=== PATIENT | female | born 1970 | race Caucasian/White ===

== ENCOUNTER 2017-02-07 18:39 | Inpatient (IN) | payer BC ==
[2017-02-07] MEDS ORDERED: NS 0.9% 1000 ML* 1,000 ML IV ONE (18:56)
[2017-02-07] MEDS ORDERED: LORazepam INJ* 2 MG/ML 1 ML VIAL IV PUSH ONE (18:58)
[2017-02-07] MEDS ORDERED: Diltiazem IV* 5 MG/ML 5 ML VIAL (for loading dose/IV Push) (25 MG) IV SLOW PU ONE (19:07)
[2017-02-07 19:19] LABS: Hematocrit 48 % (35-47); Hemoglobin 15.8 g/dl (12.0-16.0); Mean Corpuscular HGB Conc 33 g/dl (31-36); Mean Corpuscular Hemoglobin 31 pg (27-31); Mean Corpuscular Volume 94 fL (80-97); Mean Platelet Volume 9 um3 (7.4-10.4); Red Blood Count 5.07 10^6/ul (4.0-5.4); Red Cell Distribution Width 14 % (10.5-15); White Blood Count 6.7 10^3/ul (3.5-10.8)
[2017-02-07 19:34] LABS: ALT 157 U/L (7-52); AST 215 U/L (13-39); Albumin 4.4 g/dL (3.2-5.2); Alkaline Phosphatase 122 U/L (34-104); Anion Gap 10 mmol/L (2-11); BUN/Creatinine Ratio 17.1 (8-20); Blood Urea Nitrogen 12 mg/dL (6-24); CO2 Carbon Dioxide 24 mmol/L (22-32); Calcium 9.8 mg/dL (8.6-10.3); Chloride 103 mmol/L (101-111); EGFR African American 116.4 (>60); EGFR Non-African American 90.5 (>60); Globulin 2.5 g/dL (2-4); Glucose 127 mg/dL (70-100); Magnesium 1.6 mg/dL (1.9-2.7); Potassium 3.4 mmol/L (3.5-5.0); Sodium 137 mmol/L (133-145); Total Protein 6.9 g/dL (6.4-8.9)
[2017-02-07] MEDS: Diltiazem DRIP* 100 MG/100 ML ADDV.BAG IVPB ONE (19:35)
[2017-02-07 19:38] LABS: Troponin I 0.01 ng/mL (<0.04)
--- NOTE | 2017-02-07 19:39 | RAD ---
INDICATION: Atrial fibrillation. Palpitations. COMPARISON: None TECHNIQUE: An AP portable view obtained at 1927 hours is submitted. FINDINGS: Bones/Soft Tissues: There are no acute bony findings. Cardiomediastinal: The cardiomediastinal silhouette is normal. There is no vascular congestion. Lungs: There are no infiltrates. Pleura: There are no pleural effusions. Other: None IMPRESSION: NO ACTIVE DISEASE.
[2017-02-07 19:57] LABS: Alcohol < 10 mg/dL (<10)
[2017-02-07 20:08] LABS: TSH (Thyroid Stimulating Horm) 11.91 mcIU/mL (0.34-5.60)
--- NOTE | 2017-02-07 20:15 | ED ---
Audra Marr Alok, scribed for Roman Ruvalcaba MD on 02/07/17 at 1911 . Palpitations / Dysrhythmia - HPI Summary HPI Summary: 46 y/o female presents to the ED for an irregular HR and tachycardia. Pt states she has had a hx of anxiety for the last few years and a hx of EtOH use. Pt denies any CP, SOB, nausea, edema, or hx of atrial fibrillation, though both her parents have A fib. Pt states NKDA. There is no other pertinent medical information at this time. - History of Current Complaint Chief Complaint: EDDysrhythmPalp Time Seen by Provider: 02/07/17 18:51 Hx Obtained From: Patient Onset/Duration: Gradual Onset, Lasting Hours, Still Present Timing: Constant Severity Initially: Moderate Severity Currently: Moderate Character: Fast, Irregular Aggravating: Nothing Alleviating: Nothing Associated Signs & Symptoms: Negative - Allergy/Home Medications Allergies/Adverse Reactions: Allergies Allergy/AdvReac Type Severity Reaction Status Date / Time SEASONAL Allergy Sneezing Uncoded 09/14/15 14:45 Home Medications: Home Medications ALPRAZolam TAB* [Xanax TAB*] 0.25 mg PO BID PRN 02/07/17 [History Confirmed 09/16] Cyclobenzaprine TAB* [Flexeril 10 MG TAB*] 5 - 10 mg PO TID PRN 02/07/17 [ History Confirmed 02/07/17] Multiple Vitamins W/ Minerals [Multivitamin Adults] 1 tab PO DAILY 02/07/17 [ History Confirmed 02/07/17] PMH/Surg Hx/FS Hx/Imm Hx Endocrine/Hematology History: Reports: Hx Thyroid Disease Denies: Hx Diabetes Cardiovascular History: Denies: Hx Hypertension, Hx Pacemaker/ICD Respiratory History: Denies: Hx Asthma, Hx Chronic Obstructive Pulmonary Disease (COPD) GI History: Denies: Hx Ulcer History: Denies: Hx Dialysis, Hx Renal Disease Sensory History: Denies: Hx Hearing Aid Psychiatric History: Reports: Hx Panic Disorder - INCREASING THIS WEEK - Cancer History Hx Chemotherapy: No Hx Radiation Therapy: No - Surgical History Surgery Procedure, Year, and Place: ORAL SURGERY ; Infectious Disease History: No Infectious Disease History: Denies: Hx Hepatitis, Hx Human Immunodeficiency Virus (HIV), Traveled Outside the [place] in Last 30 Days - Family History Known Family History: Positive: Other - Atrial Fibrillation (both parents) - Social History Alcohol Use: Occasionally Substance Use Type: Reports: None Type: Cigarettes Amount Used/How Often: 3-5 cig/day Have You Smoked in the Last Year: Yes Review of Systems Negative: Fever Positive: Palpitations. Negative: Chest Pain Negative: Shortness Of Breath Negative: Nausea Negative: Edema All Other Systems Reviewed And Are Negative: Yes Physical Exam Triage Information Reviewed: Yes Vital Signs On Initial Exam: Initial Vitals Temp Pulse Resp BP Pulse Ox 98.4 F 130 20 186/104 100 02/07/17 18:41 02/07/17 18:41 02/07/17 18:41 02/07/17 18:41 02/07/17 18:41 Vital Signs Reviewed: Yes Appearance: Positive: Well-Appearing, No Pain Distress Skin: Positive: Warm, Skin Color Reflects Adequate Perfusion, Dry Head/Face: Positive: Normal Head/Face Inspection Eyes: Positive: Normal ENT: Positive: Normal ENT inspection Neck: Positive: Supple, Nontender Respiratory/Lung Sounds: Positive: Clear to Auscultation, Breath Sounds Present Cardiovascular: Positive: Tachycardia - Irregular rhythm Abdomen Description: Positive: Nontender, Soft Bowel Sounds: Positive: Present Musculoskeletal: Positive: Normal Neurological: Positive: Normal Psychiatric: Positive: Normal, Affect/Mood Appropriate Diagnostics - Vital Signs Vital Signs Temp Pulse Resp BP Pulse Ox 02/07/17 18:41 98.4 F 130 20 186/104 100 - Laboratory Lab Results: Lab Results 02/07/17 02/07/17 02/07/17 Range/Units 19:10 19:10 19:10 WBC 6.7 (3.5-10.8) 10^3/ul RBC 5.07 (4.0-5.4) 10^6/ul Hgb 15.8 (12.0-16.0) g/dl Hct 48 H (35-47) % MCV 94 (80-97) fL MCH 31 (27-31) pg MCHC 33 (31-36) g/dl RDW 14 (10.5-15) % Plt Count 206 (150-450) 10^3/ul MPV 9 (7.4-10.4) um3 Neut % (Auto) 71.0 (38-83) % Lymph % (Auto) 15.8 L (25-47) % Barber % (Auto) 12.2 H (1-9) % Eos % (Auto) 0.6 (0-6) % Baso % (Auto) 0.4 (0-2) % Absolute Neuts (auto) 4.8 (1.5-7.7) 10^3/ul Absolute Lymphs (auto) 1.1 (1.0-4.8) 10^3/ul Absolute Monos (auto) 0.8 (0-0.8) 10^3/ul Absolute Eos (auto) 0 (0-0.6) 10^3/ul Absolute Basos (auto) 0 (0-0.2) 10^3/ul Absolute Nucleated RBC 0 10^3/ul Nucleated RBC % 0.1 INR (Anticoag Therapy) 0.86 L (0.89-1.11) APTT 26.3 (26.0-36.3) seconds D-Dimer, Quantitative < 200 (Less Than 230) ng/mL Sodium 137 (133-145) mmol/L Potassium 3.4 L (3.5-5.0) mmol/L Chloride 103 (101-111) mmol/L Carbon Dioxide 24 (22-32) mmol/L Anion Gap 10 (2-11) mmol/L BUN 12 (6-24) mg/dL Creatinine 0.70 (0.51-0.95) mg/dL Est GFR ( Amer) 116.4 (>60) Est GFR (Non-Af Amer) 90.5 (>60) BUN/Creatinine Ratio 17.1 (8-20) Glucose 127 H (70-100) mg/dL Calcium 9.8 (8.6-10.3) mg/dL Magnesium 1.6 L (1.9-2.7) mg/dL Total Bilirubin 1.60 H (0.2-1.0) mg/dL AST 215 H (13-39) U/L ALT 157 H (7-52) U/L Alkaline Phosphatase 122 H (34-104) U/L CK-MB (CK-2) 2.4 (0.6-6.3) ng/mL Troponin I 0.01 (<0.04) ng/mL Total Protein 6.9 (6.4-8.9) g/dL Albumin 4.4 (3.2-5.2) g/dL Globulin 2.5 (2-4) g/dL Albumin/Globulin Ratio 1.8 (1-3) TSH 11.91 H (0.34-5.60) mcIU/mL Beta HCG, Quant < 0.60 mIU/mL Serum Alcohol < 10 (<10) mg/dL Result Diagrams: 02/07/17 19:10 02/07/17 19:10 Lab Statement: Any lab studies that have been ordered have been reviewed, and results considered in the medical decision making process. - EKG 1844 Cardiac Rate: Tachycardia EKG Rhythm: Atrial Fibrillation - 170 bpm EKG Interpretation: Artial Fibrillation with rapid response Course/Dx - Course Course Of Treatment: Lisa Gandhi presented with a concern for anxiety and panic. Her symptoms of palpitations and irregular racing heart were new for her though. She was found to be in A-Fib with a rapid response and was slowed with cardizem. Her transaminases were elevated with AST greater than ALT and she admits to self-medication with alcohol for her anxiety. I am concerned for alcoholic hepatitis. - Diagnoses Provider Diagnoses: Atrial fibrillation with rapid ventricular response, Alcoholic hepatitis - Physician Notifications Discussed Care Of Patient With: Dr Martel (Hospitalist) @ 2003 - Agreed to admit pt - Critical Care Time Critical Care Time: 30-74 min Discharge - Discharge Plan Condition: Stable Disposition: ADMITTED TO [facility] Referrals: Gulshan Patel MD [Primary Care Provider] - The documentation as recorded by the Audra suarez Alok accurately reflects the service I personally performed and the decisions made by me, Roman Ruvalcaba MD.
[2017-02-07] MEDS ORDERED: Acetaminophen TAB* 325 MG PO PRN (20:42)
[2017-02-07] MEDS ORDERED: Folic Acid TAB* 1 MG PO ONE (20:43)
[2017-02-07] MEDS ORDERED: Thiamine TAB* 100 MG TAB PO ONE (20:43)
[2017-02-07] MEDS ORDERED: ALPRAZolam TAB* 0.25 MG PO PRN (20:44)
[2017-02-07] MEDS ORDERED: Cyclobenzaprine TAB* 10 MG PO PRN (20:44)
[2017-02-07] MEDS ORDERED: Potassium Chlor TAB* 20 MEQ TAB.ER PO ONE (20:48)
[2017-02-07] MEDS ORDERED: LORazepam TAB(*) 1 MG PO SCH (21:00)
[2017-02-08] MEDS: Heparin VIAL(*) 5000 UNITS/ML VIAL (FIVE THOUSAND) SUBCUT SCH ×2 (00:23→05:05)
[2017-02-08] MEDS: KCL 20 MEQ/100 ML IVPREMIX* 20 MEQ/100 ML BAG IV SCH ×4 (01:00→08:53)
[2017-02-08 01:56] LABS: Budding Yeast Present (Absent); Urine Bacteria Absent (Absent); Urine Bilirubin Negative (Negative); Urine Glucose Negative (Negative); Urine Nitrite Negative (Negative)
--- NOTE | 2017-02-08 02:32 | HP ---
HOSPITAL MEDICINE HISTORY AND PHYSICAL: DATE OF ADMISSION: 02/07/17 PRIMARY CARE PHYSICIAN: Dr. Patel. ATTENDING PHYSICIAN: Dr. Jorge L Martel *(dictation provided by Socorro Dennis NP). CHIEF COMPLAINT: Rapid irregular heart rate. HISTORY OF PRESENT ILLNESS: Ms. Gandhi is a 46-year-old female with past medical history of anxiety and depression as well as hypothyroidism, who presents today to the hospital with concern for palpitations and irregular heart rate. Ms. Gandhi states that she has had worsening anxiety since her sister over a year ago, this seemed to dramatically increase around January of last year; at that time, she returned to alcohol to help with her nerves. She reports drinking in the morning. She noted that today she had heart palpitations. She states that she has had some palpitations in the past, but these were different and that they were irregular and quite rapid. She felt unwell with this and decided to come to the emergency room for evaluation. She denies any other complaints. She has had no fevers, no chills, no unintended weight loss. She has been eating and drinking okay. She has been having diarrhea on a daily basis, but she attributed this to excessive alcoholic intake. In the emergency room, Ms. Gandhi was found to be in atrial fibrillation with rapid ventricular response as high as 200. She has been placed on a Cardizem drip with good rate control with heart rate down to 120. Her labs show hypokalemia with a potassium at 3.4 and a low magnesium at 1.6. She is also showing elevated LFTs and elevated TSH. I will note that the patient states she has not been taking her levothyroxine routinely. Finally, the patient states her last alcoholic beverage was this morning. PAST MEDICAL HISTORY: 1. Anxiety. 2. Depression. 3. Hypothyroidism. OUTPATIENT MEDICATIONS: 1. Flexeril p.r.n. 2. Alprazolam p.r.n. 3. Levothyroxine 100 mcg p.o. daily. 4. Multivitamin with mineral 1 tab p.o. daily. 5. Sertraline 100 mg p.o. daily. ALLERGIES: No drug allergies. FAMILY HISTORY: The patient reports that her mother and father are still alive , but they both have AFib. She has a sister who from metastatic colon cancer. SOCIAL HISTORY: The patient smokes 1 to 2 cigarettes per day. She drinks alcohol on a daily basis, starting in the a.m. She lives with her , who is her healthcare proxy. REVIEW OF SYSTEMS: A 14-point review of systems was completed with Ms. Gandhi and all those not mentioned above were negative. PHYSICAL EXAMINATION GENERAL: Ms. Gandhi is sitting in the bed. She is in no acute distress. She is calm and cooperative with my examination. VITAL SIGNS: Temperature 98.4, heart rate 122, respiratory rate 20, O2 saturation 99% on room air, blood pressure 139/101. HEART: S1, S2. No murmur, rub, or gallop and irregular. ABDOMEN: Soft, nontender. Bowel sounds positive x4. EXTREMITIES: No cyanosis or edema. SKIN: Intact. NEUROLOGIC: She is alert and oriented x3. She moves all extremities equally. There is no facial asymmetry or focal weakness. Extraocular movements are intact. DIAGNOSTIC STUDIES/LAB DATA: WBC 6.7, hemoglobin 15.8, hematocrit 48, platelet count 206. INR 0.86. D-dimer is less than 200. Sodium 137, potassium 3.4, chloride 103, serum bicarbonate 24, BUN 12, creatinine 0.70, glucose 127. Magnesium 1.6. Total bilirubin 1.6, AST 215, ALT 157, alk phos 122. Chest x-ray shows no acute process. EKG showed AFib with a heart rate of 170. ASSESSMENT: Ms. Gandhi is a 46-year-old female with past medical history of anxiety, depression and alcoholism, who presents today to hospital with rapid irregular heart rate and found to be in atrial fibrillation with rapid ventricular response. Our plans are for inpatient admission to the hospital with expected length of stay to be greater than 48 hours for the followin. Atrial fibrillation with rapid ventricular response. The patient has responded relatively well thus far to Cardizem. We will continue to titrate that up as needed to get her heart rate less than 100. We will then transition her over to Cardizem orally. She has CHADS-VASC 2 score of 0, and therefore, is not a candidate for anticoagulation. Her risk factors are most certainly her alcoholism and we will plan to replete her potassium and magnesium. I have counseled her about alcohol use and caffeine use. She will go for a transthoracic echocardiogram on Friday. 2. Anxiety and depression. I counseled Ms. Gandhi that she should obtain outpatient mental health services to help manage her anxiety, depression, and alcoholism and also suggested AA. 3. Hypothyroidism. The patient's TSH is elevated, but the patient states she has not been taking her levothyroxine. Plan to resume levothyroxine. 4. Alcoholic hepatitis with chronic alcoholism and concern for withdrawal. The patient's liver enzymes are elevated. I suspect this is secondary to excessive alcohol use. The patient will be abstinent while inpatient and we will recheck her labs in the morning. The patient will be on WAM protocol with multivitamin, folate, and thiamine supplementation as well as Ativan p.r.n. 5. DVT prophylaxis with heparin subcu. 6. Disposition to the medical floor. TIME SPENT: Approximately 60 minutes was spent on the admission of this patient , more than half time spent with her at the bedside reviewing the events leading up to this hospitalization, performing the physical examination, and reviewing the plan of care. SOCORRO DENNIS NP CC: Dr. Patel* [id number]/CPS #: [id number] LOVE
[2017-02-08] MEDS: Diltiazem DRIP* 100 MG/100 ML ADDV.BAG IVPB ONE (03:31)
[2017-02-08] MEDS ORDERED: Diltiazem DRIP* 100 MG/100 ML ADDV.BAG IVPB SCH ×3 (04:00→20:00)
[2017-02-08] MEDS: Levothyroxine TAB* 100 MCG TAB PO SCH (05:05)
[2017-02-08 05:46] LABS: Hematocrit 39 % (35-47); Mean Corpuscular HGB Conc 34 g/dl (31-36); Mean Corpuscular Hemoglobin 32 pg (27-31); Mean Corpuscular Volume 95 fL (80-97); Mean Platelet Volume 10 um3 (7.4-10.4); Red Blood Count 4.08 10^6/ul (4.0-5.4); Red Cell Distribution Width 14 % (10.5-15); White Blood Count 4.2 10^3/ul (3.5-10.8)
[2017-02-08 06:14] LABS: Albumin 3.4 g/dL (3.2-5.2); BUN/Creatinine Ratio 19.6 (8-20); Calcium 8.3 mg/dL (8.6-10.3); EGFR African American 167.7 (>60); EGFR Non-African American 130.4 (>60); Globulin 1.9 g/dL (2-4); Magnesium 2.4 mg/dL (1.9-2.7); Potassium 3.9 mmol/L (3.5-5.0); Total Bilirubin 1.9 mg/dL (0.2-1.0); Total Protein 5.3 g/dL (6.4-8.9)
[2017-02-08] MEDS: Folic Acid TAB* 1 MG PO SCH (08:53)
[2017-02-08] MEDS: Sertraline* 100 MG TAB PO SCH (08:53)
[2017-02-08] MEDS: Thiamine TAB* 100 MG TAB PO SCH (08:53)
[2017-02-08] MEDS: Multivitamins/Minerals TAB PO SCH (08:53)
[2017-02-08] MEDS: Enoxaparin(*) 80 MG/0.8 ML SYR SUBCUT SCH ×2 (11:45→20:53)
[2017-02-08] MEDS ORDERED: Metoprolol Tartrate IV* 1 MG/ML 5 ML VIAL IV ONE (14:16)
[2017-02-08] MEDS: Potassium Chloride LIQUID* 20 MEQ PACKET PO SCH ×2 (15:27→20:55)
[2017-02-08] MEDS: Metoprolol Succinate XL TAB* 25 MG PO SCH (15:27)
--- NOTE | 2017-02-08 18:01 | PN ---
Subjective Date of Service: 02/08/17 Interval History: HOSPITALIST PROGRESS NOTE Patient seen and examined at bedside. She feels a little better today, but still has palpitations, especially with exertion. Denies chest pain. Family History: Unchanged from Admission Social History: Unchanged from Admission Past Medical History: Unchanged from Admission Objective Active Medications: Acetaminophen (Tylenol Tab*) 650 mg PO Q4H PRN PRN Reason: PAIN Alprazolam (Xanax Tab*) 0.25 mg PO Q12H PRN PRN Reason: ANXIETY Cyclobenzaprine HCl (Flexeril Tab*) 5 mg PO TID PRN PRN Reason: SPASMS Last Admin: 02/07/17 21:37 Dose: 5 mg Enoxaparin Sodium (Lovenox(*)) 70 mg SUBCUT Q12H [facility] Last Admin: 02/08/17 11:45 Dose: 70 mg Folic Acid (Folvite Tab*) 1 mg PO DAILY [facility] Last Admin: 02/08/17 08:53 Dose: 1 mg Diltiazem HCl (Cardizem Iv Advan*) 100 mg in 100 mls @ 15 mls/hr IVPB .PER RATE TAYLOR PRN Reason: Protocol Last Admin: 02/08/17 13:15 Dose: 15 mls/hr Levothyroxine Sodium (Synthroid Tab*) 100 mcg PO DAILY@0600 [facility] Last Admin: 02/08/17 05:05 Dose: 100 mcg Lorazepam (Ativan Tab(*)) 0 mg PO .PER WAM SCORE [facility] PRN Reason: Protocol Last Admin: 02/08/17 03:33 Dose: 1 mg Metoprolol Succinate (Toprol Xl Tab*) 25 mg PO DAILY [facility] Last Admin: 02/08/17 15:27 Dose: 25 mg Multivitamins/Minerals (Theragran/Minerals Tab*) 1 tab PO DAILY [facility] Last Admin: 02/08/17 08:53 Dose: 1 tab Potassium Chloride (Klor-Con Liquid*) 40 meq PO Q4H [facility] Stop: 02/08/17 20:01 Last Admin: 02/08/17 15:27 Dose: 40 meq Sertraline HCl (Zoloft*) 100 mg PO DAILY [facility] Last Admin: 02/08/17 08:53 Dose: 100 mg Thiamine HCl (Vitamin B-1 Tab*) 100 mg PO DAILY [facility] Last Admin: 02/08/17 08:53 Dose: 100 mg Vital Signs 02/08/17 02/08/17 02/08/17 11:19 11:31 11:35 Temperature 98.6 F Pulse Rate 80 Respiratory 22 19 Rate Blood Pressure 107/71 111/73 (mmHg) O2 Sat by Pulse 98 Oximetry 02/08/17 02/08/17 02/08/17 11:40 11:45 12:00 Temperature Pulse Rate Respiratory 20 25 25 Rate Blood Pressure 99/68 102/83 89/49 (mmHg) O2 Sat by Pulse Oximetry Oxygen Devices in Use Now: None Appearance: Pleasant lady sitting up in bed in NAD. Eyes: No Scleral Icterus Ears/Nose/Mouth/Throat: Mucous Membranes Moist Neck: Trachea Midline Respiratory: Symmetrical Chest Expansion and Respiratory Effort, Clear to Auscultation Cardiovascular: - - Normal S1 and S2, irregularly irregular Abdominal: NL Sounds; No Tenderness; No Distention Extremities: No Edema Neurological: Alert and Oriented x 3, NL Muscle Strength and Tone Lines/Tubes/Other Access: Clean, Dry and Intact Peripheral IV Nutrition: Taking PO's Result Diagrams: 02/08/17 04:49 02/08/17 04:49 Assess/Plan/Problems-Billing Assessment: Mrs. Gandhi is a 46yo F with PMH of anxiety, depression, hypothyroidism, alcohol abuse, who presented to ED with c/o palpitations, found to be in Afib with RVR. - Patient Problems (1) Atrial fibrillation with RVR Comment: - Increase Cardizem to 15mg/h and add Metoprolol. - Cardiology consult requested - may need AYANNA CV. - Continue Lovenox. - Hypokalemia and Hypomagnesemia corrected. (2) Alcohol withdrawal Comment: - Continue WAM protocol. (3) Anxiety Comment: - Continue Alprazolam PRN. (4) Alcoholic hepatitis Comment: - Continue to monitor LFTs. (5) Hypothyroidism Comment: - TSH is 11. - Continue Levothyroxine. - Check Free T4 and T3. (6) DVT prophylaxis Comment: - Lovenox. (7) Full code status Status and Disposition: Inpatient.
--- NOTE | 2017-02-09 01:05 | CONS ---
CC: Dr. Mendoza; Dr. Patel; Caleb Can MD CARDIOLOGY CONSULTATION: DATE OF CONSULT: 02/08/17 CONSULTING PROVIDER: Codi Mendoza MD PRIMARY DOCTOR: Gulshan Patel MD REASON FOR EVALUATION: Atrial fibrillation. HISTORY OF PRESENT ILLNESS: This is a very pleasant 46-year-old woman who was admitted with palpitations and was diagnosed atrial fibrillation with rapid ventricular response. She said that she has a history of "panic attacks" over the last year, but also has been drinking fairly heavily over the last year to try to treat her anxiety and panic attacks. She said that she has been having between 5 and 8 shots of liquor a day. She has had no blackouts or seizures, but occasionally her will come over and find her passed out. She says that about once a week, she will have an episode of feeling her heart rate speed up when she is anxious. It will increase readily, lasts for about 30 minutes and then resolve gradually. She says it can be associated with lightheadedness, apprehension, and weakness. Yesterday, she had a spell in the morning after being nauseous and vomiting. She felt her heart going fast and noted it was a panic attack, but it persisted over the course of the day. She also felt lightheaded, apprehensive, and weak with it, but is able to get around her house. It started about 7 a.m. according to the patient. Later in the day, she called up her primary care doctor's office and informed them of the developments. She was advised to go to the emergency room, where she was found to be in atrial fibrillation with rapid ventricular response. Her heart rate was as high as 200. She was started on Cardizem drip with good control of her heart rates, down to the 120s. She also was noted to have hypokalemia at 3.4 and hypomagnesemia at 1.6. She also had some mildly elevated LFTs and an elevated TSH. She admits that she had been noncompliant with her Synthroid over the last several months. She denies syncope. No orthopnea. No chest pain. No peripheral edema. No strokes or mini strokes. No bleeding problems. She does not exercise regularly, but does take care of several animals and says she is able to get around the house and take care of her animals without problem. PMH: anxiety, palpitations, hypothyroidism, alcohol abuse. PAST SURGICAL HISTORY: She denies any past surgical history. MEDICATIONS: Her outpatient medications include: 1. Flexeril. 2. Alprazolam p.r.n. She has been trying to avoid using benzodiazepines because of her concerns about becoming habituated to the drugs. 3. Levothyroxine 100 mcg a day here and in the past, but she was not compliant recently. 4. Multivitamin. 5. Sertraline 100 mg a day. As an inpatient, she is on: 1. IV diltiazem. 2. Acetaminophen. 3. Alprazolam p.r.n. 0.25 mg q.12 hours standing. 4. Enoxaparin 70 mg subcu q.12 hours. 5. Folic acid 1 mg a day. 6. Levothyroxine 100 mcg a day. 7. She received IV magnesium. 8. She received potassium. 9. She is receiving thiamine 100 mg a day. ALLERGIES: She denies any medication allergies. FAMILY HISTORY: She had a sister who of colon cancer in 2014 and a brother who committed suicide in 1994. She has no other siblings. Her mother is alive at 82. Father is alive at 88. Both have AFib and diabetes. SOCIAL HISTORY: She is , but has no children. 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 She also smokes 1 to 2 cigarettes a day. REVIEW OF SYSTEMS: Review of systems x10 was negative except as above. PHYSICAL EXAM: General: She is a well-developed, well-nourished female, mildly overweight, in no apparent distress. Vital signs: Blood pressure 108/74 , heart rate 99 to 120 and irregular, weight 148 pounds. HEENT: Atraumatic, normocephalic. Extraocular muscles intact. Sclerae anicteric. Neck: No significant JVD. Carotids 2+ without bruits. No cervical adenopathy or thyromegaly. Skin: Turgor normal. Cardiac Exam: S1, S2. Irregular, rapid. No murmurs. Chest: Clear. No CVAT. Abdomen: No hepatosplenomegaly. Bowel sounds present. Nontender. Extremities: Femoral pulses intact without bruits. Distal pulses intact. No edema. Neurologic: Motor strength 5/5 bilaterally. Deep tendon reflexes 2/4. Alert and oriented x3. DIAGNOSTIC STUDIES/LAB DATA: X-ray revealed no active disease. EKG from yesterday revealed atrial fibrillation with a rapid ventricular response of 170s and poor R- wave progression, diffuse ST depressions. Labs include relatively normal CBC. Sodium 135, potassium at 3.9, bicarb of 21 , BUN of 10, creatinine of 0.51, and calcium of 8.3. Total bili elevated at 1.9. AST elevated at 227, ALT elevated at 134 and alk phos 90, down from 122 on admission. Troponins 0.01, 0.02, and 0.01. TSH elevated at 11.9. D-dimer less than 200. INR 0.86. Serum alcohol less than 10 from last night. IMPRESSION: Ms. Gandhi has atrial fibrillation with an elevated ventricular response at 100 to 120 range even on diltiazem and history of alcohol abuse. She also has electrolyte abnormalities, which are being corrected. I did discuss at length with the patient the diagnosis of atrial fibrillation and the implications including the risk for tachycardia-induced cardiomyopathy, symptomatic atrial fibrillation with rapid rhythms as well as cardioembolic events. Given that it is uncertain exactly how long she has had the atrial fibrillation and whether she has LV dysfunction due to her alcohol, I did suggest the followin. I would continue with anticoagulation as you are doing. 2. I would correct her electrolyte abnormalities including magnesium, potassium , and calcium levels. 3. I agree with replacing her thiamine and magnesium. 4. I would correct her thyroid dysfunction as you are doing. 5. I explained to her the potential toxic effects of alcohol on the heart and possible contribution to her arrhythmia and other morbidity and mortality and advised her to get counseling and treatment for alcohol abuse. 6. I would consider adding a beta talya to her regimen for rate control and it maybe helpful in terms of her panic attacks and anxiety issues. 7. I would continue with treatment of her anxiety as you are doing and consider counseling. 8. I would obtain an echocardiogram to assess for the structural heart disease. 9. If she remains in atrial fibrillation despite the beta-talya and rate control and electrolyte replacement, we will consider a AYANNA-guided cardioversion on Friday. [id number]/[facility] #: [id number] LOVE
[2017-02-09] MEDS: Levothyroxine TAB* 100 MCG TAB PO SCH (05:44)
[2017-02-09 07:08] LABS: Albumin 3.4 g/dL (3.2-5.2); BUN/Creatinine Ratio 13.7 (8-20); Calcium 8.5 mg/dL (8.6-10.3); EGFR African American 167.7 (>60); EGFR Non-African American 130.4 (>60); Globulin 1.9 g/dL (2-4); Total Bilirubin 2.6 mg/dL (0.2-1.0); Total Protein 5.3 g/dL (6.4-8.9)
[2017-02-09 07:21] LABS: Free T4 1.07 ng/dL (0.61-1.12)
[2017-02-09] MEDS: Thiamine TAB* 100 MG TAB PO SCH (08:16)
[2017-02-09] MEDS: Sertraline* 100 MG TAB PO SCH (08:17)
[2017-02-09] MEDS: Folic Acid TAB* 1 MG PO SCH (08:17)
[2017-02-09] MEDS: Multivitamins/Minerals TAB PO SCH (08:17)
[2017-02-09] MEDS: Enoxaparin(*) 80 MG/0.8 ML SYR SUBCUT SCH ×2 (08:18→20:55)
[2017-02-09] MEDS: Metoprolol Succinate XL TAB* 25 MG PO SCH (08:20)
[2017-02-09 11:06] LABS: Total T3 0.97 ng/mL (0.87-1.78)
[2017-02-09] MEDS ORDERED: Potassium Chloride LIQUID* 20 MEQ PACKET PO ONE (12:30)
[2017-02-09] MEDS ORDERED: Metoprolol Succinate XL TAB* 25 MG PO ONE (13:00)
--- NOTE | 2017-02-09 16:32 | PN ---
Subjective Date of Service: 02/09/17 Interval History: HOSPITALIST PROGRESS NOTE Patient seen and examined at bedside. She feels better today. Palpitations are resolved, denies chest pain. Family History: Unchanged from Admission Social History: Unchanged from Admission Past Medical History: Unchanged from Admission Objective Active Medications: Acetaminophen (Tylenol Tab*) 650 mg PO Q4H PRN PRN Reason: PAIN Alprazolam (Xanax Tab*) 0.25 mg PO Q12H PRN PRN Reason: ANXIETY Cyclobenzaprine HCl (Flexeril Tab*) 5 mg PO TID PRN PRN Reason: SPASMS Last Admin: 02/07/17 21:37 Dose: 5 mg Enoxaparin Sodium (Lovenox(*)) 70 mg SUBCUT Q12H [facility] Last Admin: 02/09/17 08:18 Dose: 70 mg Folic Acid (Folvite Tab*) 1 mg PO DAILY [facility] Last Admin: 02/09/17 08:17 Dose: 1 mg Levothyroxine Sodium (Synthroid Tab*) 100 mcg PO DAILY@0600 [facility] Last Admin: 02/09/17 05:44 Dose: 100 mcg Lorazepam (Ativan Tab(*)) 0 mg PO .PER WAM SCORE [facility] PRN Reason: Protocol Last Admin: 02/08/17 03:33 Dose: 1 mg Metoprolol Succinate (Toprol Xl Tab*) 25 mg PO DAILY [facility] Last Admin: 02/09/17 08:20 Dose: 25 mg Multivitamins/Minerals (Theragran/Minerals Tab*) 1 tab PO DAILY [facility] Last Admin: 02/09/17 08:17 Dose: 1 tab Sertraline HCl (Zoloft*) 100 mg PO DAILY [facility] Last Admin: 02/09/17 08:17 Dose: 100 mg Thiamine HCl (Vitamin B-1 Tab*) 100 mg PO DAILY [facility] Last Admin: 02/09/17 08:16 Dose: 100 mg Vital Signs 02/09/17 02/09/17 02/09/17 11:01 12:00 13:12 Temperature 98.7 F Pulse Rate 118 Respiratory 24 18 Rate Blood Pressure 126/82 128/81 (mmHg) O2 Sat by Pulse 100 Oximetry Oxygen Devices in Use Now: None Appearance: Pleasant lady sitting up in bed in NAD. Eyes: No Scleral Icterus Ears/Nose/Mouth/Throat: Mucous Membranes Moist Neck: Trachea Midline Respiratory: Symmetrical Chest Expansion and Respiratory Effort, Clear to Auscultation Cardiovascular: - - Normal S1 and S2, irregularly irregular Extremities: No Edema Neurological: Alert and Oriented x 3, NL Muscle Strength and Tone Lines/Tubes/Other Access: Clean, Dry and Intact Peripheral IV Nutrition: Taking PO's Result Diagrams: 02/08/17 04:49 02/09/17 05:55 Assess/Plan/Problems-Billing Assessment: Mrs. Gandhi is a 46yo F with PMH of anxiety, depression, hypothyroidism, alcohol abuse, who presented to ED with c/o palpitations, found to be in Afib with RVR. - Patient Problems (1) Atrial fibrillation with RVR Comment: - Better controlled. - D/c Cardizem drip and continue Metoprolol. - Cardiology consult appreciated - plan for AYANNA CV in AM. - Continue Lovenox. - Hypokalemia and Hypomagnesemia corrected. (2) Alcohol withdrawal Comment: - Continue WAM protocol, but not scoring high. - SW eval about resources in the community. (3) Anxiety Comment: - Continue Alprazolam PRN. (4) Alcoholic hepatitis Comment: - Continue to monitor LFTs. (5) Hypothyroidism Comment: - TSH is 11, Free T4 and T3 are normal. - Continue Levothyroxine and repeat TFTs in 4 weeks. (6) DVT prophylaxis Comment: - Lovenox. (7) Full code status Status and Disposition: Inpatient.
[2017-02-09] MEDS ORDERED: Diltiazem CD CAP* 120 MG PO ONE (17:44)
[2017-02-10] MEDS ORDERED: Diltiazem IV* 5 MG/ML 5 ML VIAL (for loading dose/IV Push) (25 MG) IV SLOW PU STA (05:15)
[2017-02-10] MEDS: Levothyroxine TAB* 100 MCG TAB PO SCH (05:47)
[2017-02-10] MEDS ORDERED: Midazolam* 1 MG/ML 5 ML VIAL (5 MG) ONE ×2 (09:13→10:53)
[2017-02-10] MEDS ORDERED: fentaNYL* 50 MCG/ML 2 ML VIAL (100 MCG VIAL) ONE ×2 (09:13→10:53)
[2017-02-10] MEDS ORDERED: Flumazenil* 0.1 MG/ML 5 ML MDV ONE (09:14)
[2017-02-10] MEDS ORDERED: Naloxone* 0.4 MG/ML 1 ML VIAL ONE (09:14)
[2017-02-10] MEDS ORDERED: Lidocaine 2% VISCOUS* 15 ML UDC ONE (09:50)
[2017-02-10 12:43] VITALS: BP 126/81
[2017-02-10] MEDS: Folic Acid TAB* 1 MG PO SCH (13:25)
[2017-02-10] MEDS: Multivitamins/Minerals TAB PO SCH (13:25)
[2017-02-10] MEDS: Thiamine TAB* 100 MG TAB PO SCH (13:26)
[2017-02-10] MEDS: Metoprolol Succinate XL TAB* 25 MG PO SCH ×2 (13:27→15:21)
[2017-02-10] MEDS: Enoxaparin(*) 80 MG/0.8 ML SYR SUBCUT SCH (13:28)
[2017-02-10] MEDS: Sertraline* 100 MG TAB PO SCH (13:32)
[2017-02-10 14:06] LABS: Albumin 3.7 g/dL (3.2-5.2); BUN/Creatinine Ratio 10.2 (8-20); Calcium 8.8 mg/dL (8.6-10.3); EGFR African American 141.8 (>60); EGFR Non-African American 110.2 (>60); Globulin 2.4 g/dL (2-4); Potassium 4.1 mmol/L (3.5-5.0); Total Bilirubin 1.9 mg/dL (0.2-1.0); Total Protein 6.1 g/dL (6.4-8.9)
--- NOTE | 2017-02-10 14:56 | ECHO ---
Patient: BRANDT NGUYEN [facility] Rec#: [id number] : 1970 Date: 02/10/2017 Age: 46y Height: 157.5 cm / 62.0 in Weight: 67.1 kg / 147.9 lbs Sex: F BSA: 1.7 Room#: 452 Admit Date#: 02/07/2017 Type: Inpatient Referring: Caleb Can MD Performing: Madan Trinidad MD Reading: Madan Trinidad MD Control Operator: Anna Dodson RN RDCS Nurse: Eloise Arellano RN CC: Gulshan Patel MD Transesophageal Echocardiogram Indication: Atrial fibrillation BP: 110/81 HR: 156 Rhythm: A-Fib Findings History: Anxiety, palpitations, hypothyroidism, ETOH abuse, smoker Technical Comments: The study quality is good. Completed at 1225. Left Ventricle: The left ventricular chamber size is normal. Global left ventricular wall motion and contractility are within normal limits. There is normal left ventricular systolic function. The estimated ejection fraction is 55-60%. The assessment of diastolic function is non-diagnostic. Left Atrium: The left atrium is mild to moderately dilated. No thrombus is visualized within the left atrium. There is no thrombus visualized in the left atrial appendage. Right Ventricle: The right ventricular chamber size and systolic function are within normal limits. Right Atrium: The right atrial cavity size is normal. Interatrial septum appears intact without evidence of shunting. There is no patent foramen ovale visualized. The bubble study is negative. Aortic Valve: The aortic valve is trileaflet. The aortic valve leaflets are mildly thickened. There is a trace of aortic regurgitation. There is no evidence of aortic stenosis. Mitral Valve: The mitral valve leaflets are mildly thickened. There is mild to moderate mitral regurgitation. There is no evidence of mitral stenosis. Tricuspid Valve: The tricuspid valve leaflets are normal. There is mild tricuspid regurgitation. Pulmonic Valve: The pulmonic valve appears normal. There is a trace pulmonic regurgitation. There is no pulmonic stenosis. Pericardium: There is no significant pericardial effusion. Aorta: There is no dilatation of the ascending aorta. The aortic root is normal in size. There is minimal atherosclerotic plaque seen in the aorta. Pulmonary Artery: The main pulmonary artery appears normal. Venous: The bicaval view was obtained and appears normal. The pulmonary veins appear normal. The LUPV is well-visualized and interrogated with Doppler. AYANNA Procedures: All standard views were attempted within the limitations of patient tolerance and safety. History and physical as well as labs were reviewed. The patient was in a fasting state. Risks and benefits of the procedure, including alternatives, were discussed and written informed consent was obtained. The patient and/or their health care in store marketing representative expressed understanding of the procedure, risks and benefits. Baseline and continuous monitoring of blood pressure, heart rate, pulse oximetry and heart rhythm was performed throughout the procedure. The appropriate time-out procedure was performed as per [facility] protocol. The patient was placed in the left lateral decubitus position. The patient's posterior pharynx was anesthetized with 20ml of 2% viscous lidocaine. The patient received IV Midazolam with a total dose of 8 mg. The patient received IV Fentanyl with a total dose of 75 mcg. An oral bite block was inserted for protection of oral dentition. The multiplane transesophageal echocardiogram probe was inserted through the posterior oropharynx and advanced into the esophagus without difficulty. Multiple 2D images were obtained of the heart and its related structures. Color flow Doppler was used for evaluation. Spectral Doppler was also used. The atrial septum was interrogated with color flow Doppler. At the conclusion of the procedure the probe was removed with continuous suction without complications. The patient tolerated the procedure with no apparent complications. Contrast: Normal saline was used as contrast for the bubble study. Image 37. Conclusions Global left ventricular wall motion and contractility are within normal limits. The estimated ejection fraction is 55-60%. No thrombus is visualized within the left atrium. The left atrium is mild to moderately dilated. There is no thrombus visualized in the left atrial appendage. The right ventricular chamber size and systolic function are within normal limits. Interatrial septum appears intact without evidence of shunting. There is no patent foramen ovale visualized. The aortic valve leaflets are mildly thickened. There is a trace of aortic regurgitation. There is mild to moderate mitral regurgitation. There is mild tricuspid regurgitation. There is no significant pericardial effusion. Measurements Name Value Normal Range Aortic Annulus 1.7 cm (1.4 - 2.6) Ao root diameter (2D) 2.8 cm (2.1 - 3.5) Ascending Ao 3.4 cm (2.1 - 3.4) Name Value Normal Range MV E-wave Vmax 0.79 m/sec - MV deceleration time 95 msec - Name Value Normal Range AV Vmax 1.3 m/sec -
--- NOTE | 2017-02-10 23:43 | CARD ---
CARDIOVERSION REPORT: DATE OF PROCEDURE: 02/10/17 - ROOM #452 PROCEDURE: Cardioversion. INDICATION: Atrial fibrillation. HISTORY OF PRESENT ILLNESS: The patient is a 46-year-old female who was admitted to the hospital with palpitations. She was found to be in atrial fibrillation with rapid ventricular response. The patient had just undergone transesophageal echocardiogram, which demonstrated normal LV size and systolic function. No significant valvular abnormalities. No evidence of thrombus in the left atrial appendage. Cardioversion was recommended. DESCRIPTION OF PROCEDURE: The patient was given an additional 2 mg of Versed and 25 mcg of fentanyl for an additional conscious sedation for cardioversion. The patient was cardioverted with a 150 joules of synchronized biphasic energy. The patient converted to normal sinus rhythm. The patient tolerated the procedure well with no complications. The patient will be discharged on Xarelto 20 mg a day. She will be discharged on Toprol 25 mg once a day. The patient will follow up with Dr. Can. CC: Caleb Can MD* [id number]/[facility] #: [id number] MTDD
--- NOTE | 2017-02-11 10:44 | DS ---
DISCHARGE SUMMARY: DATE OF ADMISSION: 02/07/17 DATE OF DISCHARGE: 02/10/17 PRIMARY CARE PROVIDER: Gulshan Patel MD. CONSULTING CARDIOLOGISTS: Caleb Can MD; and Madan Trinidad MD. DISCHARGE DIAGNOSES: 1. Atrial fibrillation with rapid ventricular rate, status post cardioversion. 2. Mild alcohol withdrawal. 3. Alcoholic hepatitis. SECONDARY DIAGNOSES: 1. Anxiety. 2. Depression. 3. Hypothyroidism. 4. Alcohol abuse. MEDICATION LIST: 1. Multivitamin one tablet p.o. daily. 2. Alprazolam 0.25 mg p.o. b.i.d. as needed for anxiety. 3. Cyclobenzaprine 5 to 10 mg p.o. t.i.d. as needed for spasms. 4. Sertraline 100 mg p.o. daily. 5. Levothyroxine 100 mcg p.o. daily. New Medications: 1. Thiamine 100 mg p.o. daily. 2. Rivaroxaban 20 mg p.o. daily. 3. Metoprolol succinate 25 mg p.o. daily. 4. Folic acid 1 mg p.o. daily. HOSPITAL COURSE: Mrs. Gandhi is a 46-year-old lady with a past medical history as stated above, that presented to the emergency room with complaints of palpitations and irregular heart rate. The patient states that she has had anxiety for a long time, but this has worsened over the past year since her sister passed. The patient started to drink to help with her nerves and this has progressed to the point that she was drinking 12 drinks (hard liquor, wine) daily. She was trying to cut down and was down to 8 drinks a day, but she developed palpitations associated with shortness of breath, and she came to the emergency room for further evaluation. For more details about her presentation , I refer you to her history and physical. In the emergency room, she was found to be in atrial fibrillation with a rapid ventricular response as high as 200. She was started on a Cardizem drip and she was also found to have mild hypokalemia and mild hypomagnesemia. She was admitted to the telemetry floor for further evaluation. The patient was started on anticoagulation and just the Cardizem drip was not enough for rate control, so metoprolol was added. The patient was seen in consultation by Cardiology (Dr. Can) and he recommended to continue anticoagulation with Lovenox, replete electrolytes, and to continue rate control, but if no changes, the plan was for AYANNA-guided cardioversion. A transthoracic echocardiogram was performed and it showed the ejection fraction of 55% to 60%. The patient had AYANNA-guided cardioversion on 02/10/17 and Cardiology's (Dr. Trinidad ) recommendation was to discharge home on metoprolol and anticoagulation with Xarelto. I discussed with the patient the indication for anticoagulation and the risks and benefits, including but not limited to risk of bleeding and she is in agreement with this plan of care. The patient had mild withdrawal while in the hospital and did not require multiple doses of Ativan. Her LFTs were elevated and are now trending down. Hepatitis serologies are pending at the time of this dictation and should be followed as outpatient. She was advised about the importance of quitting alcohol ingestion and she states that she will follow up with a counselor to help her deal with her anxiety. The patient's TSH was elevated at 11.9, but she had a normal free T4 at 1.07 and a normal total T3 at 0.97. I have continued her same dose of levothyroxine , but she should have TFTs repeated in 4 weeks to adjust her medication if needed. The patient is medically stable for discharge at this time, to follow up with Dr. Patel next week and with Dr. Can in 1 month. PHYSICAL EXAMINATION: Vital Signs: Temperature 97.8, heart rate is 77, respiratory rate is 16, oxygen saturation is 100% on room air, blood pressure is 126/81. General: The patient is a pleasant lady, sitting up in bed, in no acute distress. CVS: Normal S1, S2. Regular rate and rhythm. Chest: Breath sounds present bilaterally with no added sounds. Abdomen: Soft. Extremities: No edema. Neuro: She is alert and oriented x3. Able to move all 4 extremities. DIET: Regular diet, but the patient was advised to avoid caffeine. ACTIVITY: As tolerated. DISPOSITION: To home. STATUS WHILE IN THE HOSPITAL: Inpatient. Please keep in mind that this is a summarized version of this patient's hospital stay. If you need more information, please feel free to call me at or please obtain the full medical records. TIME SPENT: Approximately 45 minutes was spent to complete this discharge. CC: Dr. Patel; Dr. Can; Dr. Trinidad* [id number]/[facility] #: [id number] [facility]
== END 2017-02-10 16:06 | disposition home or self-care (01) | DRG 201 ==
LOC: ED 18:39 → MEDTELE 20:13
PROVIDERS: ADMIT Hospitalist; ATTEND Internal Medicine
PROC: B24BZZ4 Ultrasonography of Heart with Aorta, Transesophageal (ICD-10-PCS; 2017-02-10)
PROC: 5A2204Z Restoration of Cardiac Rhythm, Single (ICD-10-PCS; principal; 2017-02-10 07:30)
DX: I48.91 Unspecified atrial fibrillation (principal); F10.239 Alcohol dependence with withdrawal, unspecified; K70.10 Alcoholic hepatitis without ascites; E83.42 Hypomagnesemia; F32.9 Major depressive disorder, single episode, unspecified; E03.9 Hypothyroidism, unspecified; F41.0 Panic disorder [episodic paroxysmal anxiety]; E87.6 Hypokalemia; Y90.0 Blood alcohol level of less than 20 mg/100 ml; E66.3 Overweight; Z68.27 Body mass index [BMI] 27.0-27.9, adult; Z82.49 Family history of ischemic heart disease and other diseases of the circulatory system; Z80.0 Family history of malignant neoplasm of digestive organs; Z72.0 Tobacco use; Z91.14 Patient's other noncompliance with medication regimen; Z83.3 Family history of diabetes mellitus; Z81.8 Family history of other mental and behavioral disorders; Z79.01 Long term (current) use of anticoagulants
CPT/HCPCS: 36415; 71010; 80053; 80074; 80320; 81003; 81015; 82553; 83735; 84439; 84443; 84479; 84484; 84702; 85025; 85379; 85610; 85730; 87086; 92960; 93005; 93312; 93325; A9270-GY; G0480; J1644; J1650; J2060; J2250; J2310; J3010; J3475; J3480

== ENCOUNTER 2019-05-02 20:34 | Emergency (ER) | payer BC, OTHER ==
[2019-05-02 23:18] LABS: ABS Eosinophils 0.1 10^3/ul (0-0.6); ABS Lymphocytes 1.7 10^3/ul (1.0-4.8); ABS Monocytes 0.7 10^3/ul (0-0.8); Eosinophil % 0.7 %; Hematocrit 46 % (35-47); Hemoglobin 15.1 g/dL (12.0-16.0); Lymphocyte % 19.8 %; Mean Corpuscular HGB Conc 33 g/dL (31-36); Mean Corpuscular Hemoglobin 30 pg (27-31); Mean Corpuscular Volume 89 fL (80-97); Mean Platelet Volume 8.3 fL (7.4-10.4); Platelet Count 271 10^3/uL (150-450); Red Cell Distribution Width 15 % (10.5-15); White Blood Count 8.5 10^3/uL (3.5-10.8)
[2019-05-02 23:35] LABS: ALT 23 U/L (7-52); AST 30 U/L (13-39); Albumin 4.4 g/dL (3.2-5.2); Albumin/Globulin Ratio 1.5 (1-3); Alkaline Phosphatase 131 U/L (34-104); Anion Gap 9 mmol/L (2-11); BUN/Creatinine Ratio 15.3 (8-20); Blood Urea Nitrogen 11 mg/dL (6-24); C Reactive Protein 3.38 mg/L (<8.01); CO2 Carbon Dioxide 27 mmol/L (22-32); Chloride 101 mmol/L (101-111); EGFR African American 104.6 (>60); EGFR Non-African American 86.5 (>60); Globulin 2.9 g/dL (2-4); Glucose 103 mg/dL (70-100); Potassium 3.7 mmol/L (3.5-5.0); Sodium 137 mmol/L (135-145); Total Protein 7.3 g/dL (6.4-8.9)
[2019-05-02 23:42] LABS: HCG Pregnancy < 0.60 mIU/mL
[2019-05-03 00:01] LABS: TSH (Thyroid Stimulating Horm) 17.34 mcIU/mL (0.34-5.60)
[2019-05-03] MEDS ORDERED: LORazepam TAB(*) 1 MG PO ONE (00:01)
[2019-05-03 00:18] VITALS: BP 138/98
--- NOTE | 2019-05-03 00:18 | ED ---
Palpitations / Dysrhythmia - HPI Summary HPI Summary: Patient with history of anxiety and paroxysmal A. fib complains of increased heart rate, palpitations, sensation of skipped beats intermittently through today. States resting heart rate was 135 today per pulse ox. States symptoms have resolved [employer]. Patient also states history of EtOH abuse trying to quit with recent relapse 3 weeks. Patient states she has progressed from couple glasses of wine a night to 2-1/2 bottles. Patient called her leasing agent Dr. Can who recommended she come to the ED for further evaluation today. Patient denies fever, cough, sore throat, CP, SOB, N/V/D, abdominal pain, change in urine, change in BM. Ricardo history is paroxysmal A. fib, anxiety, EtOH abuse, COPD. - History of Current Complaint Chief Complaint: EDDysrhythmPalp Time Seen by Provider: 05/02/19 22:47 Hx Obtained From: Patient Onset/Duration: Sudden Onset, Lasting Hours Severity Initially: Moderate Severity Currently: None Character: Fluttering Aggravating: Exertion Alleviating: Rest Associated Signs & Symptoms: Negative - Allergy/Home Medications Allergies/Adverse Reactions: Allergies Allergy/AdvReac Type Severity Reaction Status Date / Time MS No Known Drug Allergy Allergy Unknown Verified 05/02/19 20:43 [No Known Drug Allergy] Reaction Details SEASONAL Allergy Sneezing Uncoded 05/02/19 20:43 Home Medications: Home Medications ANORO 62.5/25 Ellipta DEVICE (NF) 62.5 mcg INH DAILY 05/02/19 [History Confirmed 05/02/19] Ambien* 10 mg PO DAILY 05/02/19 [History Confirmed 05/02/19] PMH/Surg Hx/FS Hx/Imm Hx Endocrine/Hematology History: Reports: Hx Thyroid Disease Denies: Hx Diabetes Cardiovascular History: Denies: Hx Hypertension, Hx Pacemaker/ICD Respiratory History: Denies: Hx Asthma, Hx Chronic Obstructive Pulmonary Disease (COPD) GI History: Denies: Hx Ulcer History: Denies: Hx Dialysis, Hx Renal Disease Sensory History: Reports: Hx Contacts or Glasses Denies: Hx Hearing Aid Opthamlomology History: Reports: Hx Contacts or Glasses EENT History: Denies: Hx Deafness Neurological History: Denies: Hx Dementia Psychiatric History: Reports: Hx Panic Disorder - INCREASING THIS WEEK - Cancer History Hx Chemotherapy: No Hx Radiation Therapy: No - Surgical History Surgery Procedure, Year, and Place: ORAL SURGERY ; Infectious Disease History: No Infectious Disease History: Denies: Hx Hepatitis, Hx Human Immunodeficiency Virus (HIV), Traveled Outside the [place] in Last 30 Days - Family History Known Family History: Positive: Other - Atrial Fibrillation (both parents) - Social History Alcohol Use: Occasionally Alcohol Amount: currently does 1 flask per day. was doing 8-9shots a day Substance Use Type: Reports: None Smoking Status (MU): Former Smoker Type: Cigarettes Amount Used/How Often: 3-5 cig/day Have You Smoked in the Last Year: Yes Review of Systems Constitutional: Negative Eyes: Negative ENT: Negative Positive: Palpitations Respiratory: Negative Gastrointestinal: Negative Genitourinary: Negative Musculoskeletal: Negative Skin: Negative Neurological: Negative Positive: Anxious All Other Systems Reviewed And Are Negative: Yes Physical Exam - Summary Physical Exam Summary: Lung sounds clear to auscultation bilaterally. RRR. Abdomen soft nontender. No pitting edema on bilateral lower extremities. Triage Information Reviewed: Yes Vital Signs On Initial Exam: Initial Vitals Temp Pulse Resp BP Pulse Ox 98.8 F 123 16 166/115 99 05/02/19 20:39 05/02/19 20:39 05/02/19 20:39 05/02/19 20:39 05/02/19 20:39 Vital Signs Reviewed: Yes Appearance: Positive: Well-Appearing Skin: Positive: Warm, Skin Color Reflects Adequate Perfusion Head/Face: Positive: Normal Head/Face Inspection Eyes: Positive: Normal Neck: Positive: Supple Respiratory/Lung Sounds: Positive: Clear to Auscultation Cardiovascular: Positive: Normal Abdomen Description: Positive: Nontender Musculoskeletal: Positive: Normal Neurological: Positive: Normal Psychiatric: Positive: Normal AVPU Assessment: Alert - Carmen Coma Scale Best Eye Response: 4 - Spontaneous Best Motor Response: 6 - Obeys Commands Best Verbal Response: 5 - Oriented Coma Scale Total: 15 Diagnostics - Vital Signs Vital Signs Temp Pulse Resp BP Pulse Ox 05/02/19 23:07 103 17 140/117 99 05/02/19 23:00 107 14 100 05/02/19 22:47 101 19 98 05/02/19 22:42 17 167/126 05/02/19 20:39 98.8 F 123 16 166/115 99 - Laboratory Lab Results: Lab Results 05/02/19 05/02/19 Range/Units 23:04 23:07 WBC 8.5 (3.5-10.8) 10^3/uL RBC 5.10 H (3.70-4.87) 10^6 /uL Hgb 15.1 (12.0-16.0) g/dL Hct 46 (35-47) % MCV 89 (80-97) fL MCH 30 (27-31) pg MCHC 33 (31-36) g/dL RDW 15 (10.5-15) % Plt Count 271 (150-450) 10^3/uL MPV 8.3 (7.4-10.4) fL Neut % (Auto) 70.9 % Lymph % (Auto) 19.8 % Morgan % (Auto) 8.2 % Eos % (Auto) 0.7 % Baso % (Auto) 0.4 % Absolute Neuts (auto) 6.0 (1.5-7.7) 10^3/ul Absolute Lymphs (auto) 1.7 (1.0-4.8) 10^3/ul Absolute Monos (auto) 0.7 (0-0.8) 10^3/ul Absolute Eos (auto) 0.1 (0-0.6) 10^3/ul Absolute Basos (auto) 0.0 (0-0.2) 10^3/ul Absolute Nucleated RBC 0.0 10^3/ul Nucleated RBC % 0.0 Sodium 137 (135-145) mmol/L Potassium 3.7 (3.5-5.0) mmol/L Chloride 101 (101-111) mmol/L Carbon Dioxide 27 (22-32) mmol/L Anion Gap 9 (2-11) mmol/L BUN 11 (6-24) mg/dL Creatinine 0.72 (0.51-0.95) mg/dL Est GFR ( Amer) 104.6 (>60) Est GFR (Non-Af Amer) 86.5 (>60) BUN/Creatinine Ratio 15.3 (8-20) Glucose 103 H (70-100) mg/dL Calcium 10.0 (8.6-10.3) mg/dL Total Bilirubin 1.00 (0.2-1.0) mg/dL AST 30 (13-39) U/L ALT 23 (7-52) U/L Alkaline Phosphatase 131 H (34-104) U/L Troponin I 0.00 (<0.04) ng/mL C-Reactive Protein 3.38 (<8.01) mg/L Total Protein 7.3 (6.4-8.9) g/dL Albumin 4.4 (3.2-5.2) g/dL Globulin 2.9 (2-4) g/dL Albumin/Globulin Ratio 1.5 (1-3) TSH 17.34 H (0.34-5.60) mcIU/mL Beta HCG, Quant < 0.60 mIU/mL Result Diagrams: 05/02/19 23:07 05/02/19 23:04 Lab Statement: Any lab studies that have been ordered have been reviewed, and results considered in the medical decision making process. Course/Dx - Course Course Of Treatment: Patient with history of anxiety and paroxysmal A. fib complains of increased heart rate, palpitations, sensation of skipped beats intermittently through today. States resting heart rate was 135 today per pulse ox. States symptoms have resolved [employer]. Patient also states history of EtOH abuse trying to quit with recent relapse 3 weeks. Patient states she has progressed from couple glasses of wine a night to 2-1/2 bottles. Patient called her leasing agent Dr. Can who recommended she come to the ED for further evaluation today. Patient denies fever, cough, sore throat, CP, SOB, N/ V/D, abdominal pain, change in urine, change in BM. Ricardo history is paroxysmal A. fib, anxiety, EtOH abuse, COPD. Physical exam:Lung sounds clear to auscultation bilaterally. RRR. Abdomen soft nontender. No pitting edema on bilateral lower extremities. Patient intermittently tachycardic which resolved over time. Vital signs otherwise unremarkable. Labs unremarkable except for elevated TSH of 17. Patient has history of hypothyroid, is irregularly compliant with her Synthroid. EKG sinus rhythm. Patient advised to follow-up with leasing agent Dr. Can and her PCP. Patient understands and approves of plan. - Diagnoses Provider Diagnoses: Palpitations, Anxiety, Hypothyroid Discharge - Sign-Out/Discharge Documenting (check all that apply): Patient Departure Patient Received Moderate/Deep Sedation with Procedure: No - Discharge Plan Condition: Stable Disposition: HOME Patient Education Materials: Heart Palpitations (ED), Hypothyroidism (ED), Anxiety (ED) Referrals: Gulshan Patel MD [Primary Care Provider] - Additional Instructions: Follow-up with your leasing agent for further evaluation of palpitations. Follow -up with her primary care doctor for further evaluation of hypothyroid. Return to the ED for any new or worsening symptoms. - Billing Disposition and Condition Condition: STABLE Disposition: Home
== END 2019-05-03 00:32 | disposition home or self-care (01) ==
LOC: ED 20:34
DX: R00.2 Palpitations (principal); F41.9 Anxiety disorder, unspecified; E03.9 Hypothyroidism, unspecified; Z87.891 Personal history of nicotine dependence
CPT/HCPCS: 36415; 80053; 84443; 84484; 84702; 85025; 86140; 93005; 99283